=== PATIENT | male | born 1955 | race Caucasian/White ===

== ENCOUNTER 2018-06-16 13:23 | Emergency (ER) | payer SELFPAY ==
[~2018-06-16] VITALS: Ht 175.3 cm; Wt 99.8 kg
[2018-06-16] MEDS ORDERED: cloNIDine HCL 0.1 MG TAB ONE (13:50)
[2018-06-16] MEDS ORDERED: cloNIDine HCL 0.1 MG TAB PO ONE (14:00)
[2018-06-16 14:52] LABS: Calcium 8.7 mg/dL (8.5-10.1); Potassium 3.6 mmol/L (3.5-5.1)
[2018-06-16 14:57] LABS: Basophils # (auto) 0.1 uL; Basophils % (auto) 0.7 % (0.0-2.0); Eosinophils # (auto) 0.2 uL; Eosinophils % (auto) 2.2 % (0.0-7.0); Hematocrit 50.1 % (41.0-53.0); Hemoglobin 16.6 g/dL (13.5-17.5); Lymphocytes % (auto) 12.2 % (10.0-50.0); Mean Corpuscular Hgb Conc. 33.2 g/dL (32.0-36.0); Mean Corpuscular Volume 87.4 fL (80.0-100.0); Monocytes # (auto) 0.7 uL; Monocytes % (auto) 9.3 % (0.0-12.0); Neutrophils % (auto) 75.6 % (37.0-80.0); Nucleated Red Blood Cells % 0.1 %; Platelet Count (auto) 253 10^3/uL (140-450); Red Blood Cells 5.73 10^6/uL (4.5-5.90); Red Cell Distribution Width 14.1 % (11.8-14.3)
[2018-06-16 14:58] LABS: Bilirubin, Total 0.4 mg/dL (0.2-1.0); Total Protein 7.2 g/dL (6.4-8.2)
[2018-06-16] MEDS ORDERED: MINOXIDIL 2.5 MG TAB PO ONE (20:30)
[2018-06-16] MEDS ORDERED: LABETALOL HCL 200 MG TAB PO ONE (20:30)
[2018-06-16] MEDS ORDERED: HCTZ 25 MG TAB PO ONE (20:30)
[2018-06-16] MEDS ORDERED: LISINOPRIL 20 MG TAB PO ONE (20:30)
[2018-06-16 22:41] VITALS: BP 134/86
== END 2018-06-16 23:12 | disposition home or self-care (01) ==
LOC: ER 13:23
DX: I10 Essential (primary) hypertension (principal); E78.5 Hyperlipidemia, unspecified; Z76.0 Encounter for issue of repeat prescription; Z87.891 Personal history of nicotine dependence
CPT/HCPCS: 36415; 80053; 85025